=== PATIENT | male | born 1995 | race Caucasian/White ===

== ENCOUNTER 2021-03-13 22:49 | Inpatient (IN) | payer BC, MEDICAID, OTHER ==
--- NOTE | 2021-03-13 23:09 | ED ---
Overdose HPI - General Stated Complaint: Overdose Time Seen by Provider: 03/13/21 23:02 Source: patient, EMS Mode of arrival: EMS - History of Present Illness Initial Comments: This patient is 26-year-old man brought by ambulance to be evaluated after he had taken close to 30 prozac tablets. Complaint: intentional overdose Onset/Timin -: minutes(s) Intent: suicide attempt How Overdose Was Discovered: family/friend present at time Context: Intentional Overdose: relationship problems, work problems, legal problems - Related Data Home Medications Medication Instructions Recorded Confirmed FLUoxetine HCL [PROzac] 20 mg PO DAILY 03/14/21 03/14/21 Allergies Allergy/AdvReac Type Severity Reaction Status Date / Time No Known Allergies Allergy Verified 03/14/21 09:47 Review of Systems ROS Statement: Those systems with pertinent positive or pertinent negative responses have been documented in the HPI. ROS Other: All systems not noted in ROS Statement are negative. Constitutional: Denies: fever, chills, weakness Respiratory: Denies: cough, dyspnea Cardiovascular: Denies: chest pain, palpitations, edema Gastrointestinal: Denies: abdominal pain, nausea, vomiting Genitourinary: Denies: dysuria, hematuria Musculoskeletal: Denies: back pain Skin: Denies: rash Neurological: Denies: headache, weakness, numbness Psychiatric: Reports: depression, suicidal thoughts. Denies: homicidal thoughts Past Medical History Additional Past Medical History / Comment(s): heart murmur History of Any Multi-Drug Resistant Organisms: None Reported Past Surgical History: No Surgical Hx Reported Past Psychological History: No Psychological Hx Reported Smoking Status: Current every day smoker Past Alcohol Use History: Daily, Heavy Past Drug Use History: Marijuana General Exam General appearance: alert, in no apparent distress Head exam: Present: atraumatic, normocephalic Eye exam: Present: normal appearance. Absent: scleral icterus, conjunctival injection Respiratory exam: Present: normal lung sounds bilaterally. Absent: respiratory distress, wheezes, rales, rhonchi, stridor Cardiovascular Exam: Present: regular rate, normal rhythm, normal heart sounds. Absent: systolic murmur, diastolic murmur, rubs, gallop GI/Abdominal exam: Present: soft. Absent: distended, tenderness, guarding, rebound, rigid, mass Extremities exam: Present: normal inspection, normal capillary refill. Absent: pedal edema, calf tenderness Back exam: Present: normal inspection. Absent: CVA tenderness (R), CVA tenderness (L) Neurological exam: Present: alert Psychiatric exam: Present: depressed, flat affect, suicidal ideation. Absent: agitated, anxious, manic, homicidal ideation Skin exam: Present: warm, dry, intact, normal color. Absent: rash Course Vital Signs 03/13/21 03/14/21 22:51 07:22 Temperature 98.3 F 98 F Pulse Rate 76 68 Respiratory 18 18 Rate Blood Pressure 119/92 109/75 O2 Sat by Pulse 99 97 Oximetry Medical Decision Making - Lab Data Result diagrams: 03/15/21 06:55 03/15/21 06:55 Lab Results 03/13/21 03/13/21 03/13/21 Range/Units 23:47 23:47 23:47 WBC 7.0 (3.8-10.6) k/uL RBC 4.79 (4.30-5.90) m/uL Hgb 16.0 (13.0-17.5) gm/dL Hct 45.8 (39.0-53.0) % MCV 95.6 (80.0-100.0) fL MCH 33.4 (25.0-35.0) pg MCHC 34.9 (31.0-37.0) g/dL RDW 12.5 (11.5-15.5) % Plt Count 316 (150-450) k/uL MPV 6.2 Neutrophils % 59 % Lymphocytes % 29 % Monocytes % 7 % Eosinophils % 3 % Basophils % 0 % Neutrophils # 4.1 (1.3-7.7) k/uL Lymphocytes # 2.0 (1.0-4.8) k/uL Monocytes # 0.5 (0-1.0) k/uL Eosinophils # 0.2 (0-0.7) k/uL Basophils # 0.0 (0-0.2) k/uL Sodium 145 (137-145) mmol/L Potassium 3.9 (3.5-5.1) mmol/L Chloride 108 H (98-107) mmol/L Carbon Dioxide 25 (22-30) mmol/L Anion Gap 12 mmol/L BUN 5 L (9-20) mg/dL Creatinine 0.80 (0.66-1.25) mg/dL Est GFR (CKD-EPI)AfAm >90 (>60 ml/min/1.73 sqM) Est GFR (CKD-EPI)NonAf >90 (>60 ml/min/1.73 sqM) Glucose 107 H (74-99) mg/dL Calcium 9.9 (8.4-10.2) mg/dL Magnesium 2.0 (1.6-2.3) mg/dL Total Bilirubin 0.5 (0.2-1.3) mg/dL AST 37 (17-59) U/L ALT 21 (4-49) U/L Alkaline Phosphatase 50 (38-126) U/L Total Protein 7.9 (6.3-8.2) g/dL Albumin 4.9 (3.5-5.0) g/dL Urine Color Urine Appearance (Clear) Urine pH (5.0-8.0) Ur Specific [place] (1.001-1.035) Urine Protein (Negative) Urine Glucose (UA) (Negative) Urine Ketones (Negative) Urine Blood (Negative) Urine Nitrite (Negative) Urine Bilirubin (Negative) Urine Urobilinogen (<2.0) mg/dL Ur Leukocyte Esterase (Negative) Salicylates <1.0 mg/dL Urine Opiates Screen Not Detected (NotDetected) Ur Oxycodone Screen Not Detected (NotDetected) Urine Methadone Screen Not Detected (NotDetected) Ur Propoxyphene Screen Not Detected (NotDetected) Acetaminophen <10.0 ug/mL Ur Barbiturates Screen Not Detected (NotDetected) U Tricyclic Antidepress Not Detected (NotDetected) Ur Phencyclidine Scrn Not Detected (NotDetected) Ur Amphetamines Screen Not Detected (NotDetected) U Methamphetamines Scrn Not Detected (NotDetected) U Benzodiazepines Scrn Not Detected (NotDetected) Urine Cocaine Screen Not Detected (NotDetected) U Marijuana (THC) Screen Detected H (NotDetected) Serum Alcohol 189 mg/dL Coronavirus (PCR) (Not Detectd) 03/13/21 03/14/21 Range/Units 23:47 07:20 WBC (3.8-10.6) k/uL RBC (4.30-5.90) m/uL Hgb (13.0-17.5) gm/dL Hct (39.0-53.0) % MCV (80.0-100.0) fL MCH (25.0-35.0) pg MCHC (31.0-37.0) g/dL RDW (11.5-15.5) % Plt Count (150-450) k/uL MPV Neutrophils % % Lymphocytes % % Monocytes % % Eosinophils % % Basophils % % Neutrophils # (1.3-7.7) k/uL Lymphocytes # (1.0-4.8) k/uL Monocytes # (0-1.0) k/uL Eosinophils # (0-0.7) k/uL Basophils # (0-0.2) k/uL Sodium (137-145) mmol/L Potassium (3.5-5.1) mmol/L Chloride (98-107) mmol/L Carbon Dioxide (22-30) mmol/L Anion Gap mmol/L BUN (9-20) mg/dL Creatinine (0.66-1.25) mg/dL Est GFR (CKD-EPI)AfAm (>60 ml/min/1.73 sqM) Est GFR (CKD-EPI)NonAf (>60 ml/min/1.73 sqM) Glucose (74-99) mg/dL Calcium (8.4-10.2) mg/dL Magnesium (1.6-2.3) mg/dL Total Bilirubin (0.2-1.3) mg/dL AST (17-59) U/L ALT (4-49) U/L Alkaline Phosphatase (38-126) U/L Total Protein (6.3-8.2) g/dL Albumin (3.5-5.0) g/dL Urine Color Light Yellow Urine Appearance Clear (Clear) Urine pH 7.0 (5.0-8.0) Ur Specific [place] 1.010 (1.001-1.035) Urine Protein Negative (Negative) Urine Glucose (UA) Negative (Negative) Urine Ketones Negative (Negative) Urine Blood Negative (Negative) Urine Nitrite Negative (Negative) Urine Bilirubin Negative (Negative) Urine Urobilinogen <2.0 (<2.0) mg/dL Ur Leukocyte Esterase Negative (Negative) Salicylates mg/dL Urine Opiates Screen (NotDetected) Ur Oxycodone Screen (NotDetected) Urine Methadone Screen (NotDetected) Ur Propoxyphene Screen (NotDetected) Acetaminophen ug/mL Ur Barbiturates Screen (NotDetected) U Tricyclic Antidepress (NotDetected) Ur Phencyclidine Scrn (NotDetected) Ur Amphetamines Screen (NotDetected) U Methamphetamines Scrn (NotDetected) U Benzodiazepines Scrn (NotDetected) Urine Cocaine Screen (NotDetected) U Marijuana (THC) Screen (NotDetected) Serum Alcohol mg/dL Coronavirus (PCR) Not Detected (Not Detectd) - EKG Data -: EKG Interpreted by Me EKG shows normal: sinus rhythm (With sinus arrhythmia), axis (Right axis), intervals (IN interval 150 ms, QRS duration 110 ms, QTC 4:15 milliseconds, all normal), QRS complexes (Normal), ST-T waves (Normal) Rate: normal (Rate 69 bpm) Interpretation: LVH (Voltage criteria) Disposition Clinical Impression: Overdose, Suicide Disposition: ADMITTED IP TO THIS [facility] Condition: Fair
[2021-03-13] MEDS ORDERED: NICOTINE 21MG/24HR PATCH TRANSDERM STA (23:11)
[2021-03-13] MEDS ORDERED: SODIUM CHLORIDE 0.9% 1,000 ML IV STA (23:38)
[2021-03-13] MEDS ORDERED: ONDANSETRON 4 MG/2 ML VIAL IVP STA (23:44)
[2021-03-14 00:02] LABS: Basophils % (A) 0 %; Eosinophils # (A) 0.2 k/uL (0-0.7); Eosinophils % (A) 3 %; HCT 45.8 % (39.0-53.0); Lymphocytes % (A) 29 %; MCH 33.4 pg (25.0-35.0); MCHC 34.9 g/dL (31.0-37.0); MCV 95.6 fL (80.0-100.0); Mean Platelet Volume 6.2; Monocytes # (A) 0.5 k/uL (0-1.0); Monocytes % (A) 7 %; Neutrophils # (A) 4.1 k/uL (1.3-7.7); Neutrophils % (A) 59 %; Platelet Count 316 k/uL (150-450); RBC 4.79 m/uL (4.30-5.90); RDW 12.5 % (11.5-15.5)
[2021-03-14 00:14] LABS: Amphetamine Screen,Urine Not Detected (NotDetected); Barbiturate Screen,Urine Not Detected (NotDetected); Benzodiazepines Screen,Urine Not Detected (NotDetected); Cocaine Screen,Urine Not Detected (NotDetected); Methadone Screen, Urine Not Detected (NotDetected); Opiate Screen,Urine Not Detected (NotDetected); Oxycodone Screen, Urine Not Detected (NotDetected); Phencyclidine Screen,Urine Not Detected (NotDetected); Tricyclic Antidepressant,Urine Not Detected (NotDetected); Urn Cannabinoid Scrn Detected (NotDetected)
[2021-03-14 00:37] LABS: ALT 21 U/L (4-49); AST 37 U/L (17-59); Acetaminophen <10.0 ug/mL; African American GFR (CKD) >90 (>60 ml/min/1.73 sqM); Albumin 4.9 g/dL (3.5-5.0); Alkaline Phosphatase 50 U/L (38-126); Anion Gap 12 mmol/L; Blood Urea Nitrogen 5 mg/dL (9-20); Calcium 9.9 mg/dL (8.4-10.2); Carbon Dioxide 25 mmol/L (22-30); Chloride 108 mmol/L (98-107); Glucose 107 mg/dL (74-99); Non-African American GFR(CKD) >90 (>60 ml/min/1.73 sqM); Potassium 3.9 mmol/L (3.5-5.1); Salicylate <1.0 mg/dL; Sodium 145 mmol/L (137-145); Total Bilirubin 0.5 mg/dL (0.2-1.3); Total Protein 7.9 g/dL (6.3-8.2)
[2021-03-14 00:40] LABS: Alcohol 189 mg/dL
[2021-03-14] MEDS ORDERED: LORazepam 1 MG TAB PO PRN (07:25)
[2021-03-14] MEDS ORDERED: MAGNESIUM HYDROXIDE 2,400 MG/10 ML CUP PO PRN (07:25)
[2021-03-14] MEDS ORDERED: MAG HYDROX/AL HYDROX/SIMETH 30 ML CUP PO PRN (07:25)
[2021-03-14] MEDS ORDERED: ACETAMINOPHEN TAB 325 MG TAB PO PRN (07:25)
[2021-03-14] MEDS ORDERED: LORazepam 2 MG/ML INJ IM PRN (07:28)
[2021-03-14] MEDS ORDERED: HALOPERIDOL LACTATE 5 MG/ML 1 ML VIAL IM PRN (07:30)
[2021-03-14 08:08] LABS: Appearance,Urine Clear (Clear); Bilirubin,Urine Negative (Negative); Blood,Urine Negative (Negative); Color,Urine Light Yellow; Glucose,Urine (UA) Negative (Negative); Ketones,Urine Negative (Negative); Leukocyte Esterase,Urine Negative (Negative); Nitrite,Urine Negative (Negative); Protein,Urine Negative (Negative); Urobilinogen,Urine <2.0 mg/dL (<2.0)
[2021-03-14] MEDS ORDERED: haloperidoL 5 MG TAB PO SCH (09:00)
[2021-03-14] MEDS ORDERED: haloperidoL 5 MG TAB PO PRN (09:27)
[2021-03-14] MEDS: busPIRone HCl 10 MG TAB PO SCH ×2 (12:12→21:29)
[2021-03-14] MEDS: ESCITALOPRAM 5 MG TAB PO SCH (12:12)
--- NOTE | 2021-03-14 12:13 | P.HP ---
Psychiatric H&P - . H&P Date: 03/14/21 History & Physical: Allergies Allergy/AdvReac Type Severity Reaction Status Date / Time No Known Allergies Allergy Verified 03/14/21 09:47 Vital Signs Temp 98.5 F 03/14/21 09:34 Pulse 66 03/14/21 09:34 Resp 16 03/14/21 09:34 BP 129/83 03/14/21 09:34 Pulse Ox 97 03/14/21 07:22 Intake & Output 03/13/21 03/14/21 03/14/21 18:59 06:59 18:59 Weight 81.647 kg 70.9 kg Laboratory Last Values WBC 7.0 k/uL (3.8-10.6) 03/13/21 23:47 RBC 4.79 m/uL (4.30-5.90) 03/13/21 23:47 Hgb 16.0 gm/dL (13.0-17.5) 03/13/21 23:47 Hct 45.8 % (39.0-53.0) 03/13/21 23:47 MCV 95.6 fL (80.0-100.0) 03/13/21 23:47 MCH 33.4 pg (25.0-35.0) 03/13/21 23:47 MCHC 34.9 g/dL (31.0-37.0) 03/13/21 23:47 RDW 12.5 % (11.5-15.5) 03/13/21 23:47 Plt Count 316 k/uL (150-450) 03/13/21 23:47 MPV 6.2 03/13/21 23:47 Neutrophils % 59 % 03/13/21 23:47 Lymphocytes % 29 % 03/13/21 23:47 Monocytes % 7 % 03/13/21 23:47 Eosinophils % 3 % 03/13/21 23:47 Basophils % 0 % 03/13/21 23:47 Neutrophils # 4.1 k/uL (1.3-7.7) 03/13/21 23:47 Lymphocytes # 2.0 k/uL (1.0-4.8) 03/13/21 23:47 Monocytes # 0.5 k/uL (0-1.0) 03/13/21 23:47 Eosinophils # 0.2 k/uL (0-0.7) 03/13/21 23:47 Basophils # 0.0 k/uL (0-0.2) 03/13/21 23:47 Sodium 145 mmol/L (137-145) 03/13/21 23:47 Potassium 3.9 mmol/L (3.5-5.1) 03/13/21 23:47 Chloride 108 mmol/L (98-107) H 03/13/21 23:47 Carbon Dioxide 25 mmol/L (22-30) 03/13/21 23:47 Anion Gap 12 mmol/L 03/13/21 23:47 BUN 5 mg/dL (9-20) L 03/13/21 23:47 Creatinine 0.80 mg/dL (0.66-1.25) 03/13/21 23:47 Est GFR (CKD-EPI)AfAm >90 (>60 ml/min/1.73 sqM) 03/13/21 23:47 Est GFR (CKD-EPI)NonAf >90 (>60 ml/min/1.73 sqM) 03/13/21 23:47 Glucose 107 mg/dL (74-99) H 03/13/21 23:47 Calcium 9.9 mg/dL (8.4-10.2) 03/13/21 23:47 Magnesium 2.0 mg/dL (1.6-2.3) 03/13/21 23:47 Total Bilirubin 0.5 mg/dL (0.2-1.3) 03/13/21 23:47 AST 37 U/L (17-59) 03/13/21 23:47 ALT 21 U/L (4-49) 03/13/21 23:47 Alkaline Phosphatase 50 U/L (38-126) 03/13/21 23:47 Total Protein 7.9 g/dL (6.3-8.2) 03/13/21 23:47 Albumin 4.9 g/dL (3.5-5.0) 03/13/21 23:47 Urine Color Light Yellow 03/13/21 23:47 Urine Appearance Clear (Clear) 03/13/21 23:47 Urine pH 7.0 (5.0-8.0) 03/13/21 23:47 Ur Specific [place] 1.010 (1.001-1.035) 03/13/21 23:47 Urine Protein Negative (Negative) 03/13/21 23:47 Urine Glucose (UA) Negative (Negative) 03/13/21 23:47 Urine Ketones Negative (Negative) 03/13/21 23:47 Urine Blood Negative (Negative) 03/13/21 23:47 Urine Nitrite Negative (Negative) 03/13/21 23:47 Urine Bilirubin Negative (Negative) 03/13/21 23:47 Urine Urobilinogen <2.0 mg/dL (<2.0) 03/13/21 23:47 Ur Leukocyte Esterase Negative (Negative) 03/13/21 23:47 Salicylates <1.0 mg/dL 03/13/21 23:47 Urine Opiates Screen Not Detected (NotDetected) 03/13/21 23:47 Ur Oxycodone Screen Not Detected (NotDetected) 03/13/21 23:47 Urine Methadone Screen Not Detected (NotDetected) 03/13/21 23:47 Ur Propoxyphene Screen Not Detected (NotDetected) 03/13/21 23:47 Acetaminophen <10.0 ug/mL 03/13/21 23:47 Ur Barbiturates Screen Not Detected (NotDetected) 03/13/21 23:47 U Tricyclic Antidepress Not Detected (NotDetected) 03/13/21 23:47 Ur Phencyclidine Scrn Not Detected (NotDetected) 03/13/21 23:47 Ur Amphetamines Screen Not Detected (NotDetected) 03/13/21 23:47 U Methamphetamines Scrn Not Detected (NotDetected) 03/13/21 23:47 U Benzodiazepines Scrn Not Detected (NotDetected) 03/13/21 23:47 Urine Cocaine Screen Not Detected (NotDetected) 03/13/21 23:47 U Marijuana (THC) Screen Detected (NotDetected) H 03/13/21 23:47 Serum Alcohol 189 mg/dL 03/13/21 23:47 Coronavirus (PCR) Not Detected (Not Detectd) 03/14/21 07:20 03/14/21 11:20 IDENTIFYING DATA: Patient is a 26-year-old male who currently lives with his friend and has 1 to single and currently he works making [employer] . HPI: Patient presented to the hospital yesterday brought in by EMS after a overdose at his home. Apparently patient had taken 30 tablets of Prozac according to ER report. Family and friends were present. Patient's UDS was positive for marijuana. Patient was admitted to the unit for further evaluation and treatment. Patient was seen today and agreeable to seek a sheet writer. He had poor hygiene and grooming. He was tearful at times during the interview. He states that he tried to kill himself after an overdose and states that he started drinking heavily afterwards. He states that he's been drinking heavily for approximately 5-6 years now. He denies any history of delirium tremens however states that he does have mild tremors at this time and cravings. He states that he was drinking approximately one to two fifths of [place] per day. He states that he relapsed also "back on pills" however was vague about what this meant. He states that he is feeling depressed and anxious. He states that recent triggers include him starting a new job and also his mother of the child won't let him talk to his daughter any longer "because she has a new boyfriend". He states that he also is 26 years old" still can't drive". He claims that after the overdose he passed out and his friend called EMS to bring him in the hospital. He states that his sleep is okay and appetite is fair. Patient denies any suicidal or homicidal ideations intent or plan. At this time patient denies any auditory or visual hallucinations. Patient denies any flight of ideas racing thoughts and increased in goal directed behavior. Patient admits to using cigarettes daily, marijuana daily, alcohol as described above. PAST PSYCHIATRIC HISTORY: Patient states that he has a history of polysubstance abuse and depression and anxiety. Patient denies being on any psychiatric medications. Patient denies any previous psychiatric hospitalizations. He claims that he is recently established that [facility] however has not seen a psychiatrist yet. He claims that he was hospitalized once in [place] when he was 16 years old. He claims that he did have 2 other overdose suicide attempts in the past. PMH: Heart murmur ALLERGIES: as per EMR CHEMICAL DEPENDENCY HISTORY: as per HPI FAMILY PSYCHIATRIC/SUBSTANCE USE HISTORY: Mother has bipolar disorder SOCIAL HISTORY: Patient was born and raised in [facility]. He states that he completed high school. He states that he's been to shelter approximately 26 times in the past for various charges. He states that he currently lives with a friend and has 1 to single and is currently employed making [employer]. MENTAL STATUS EXAM: General Appearance: Patient appears to be older than stated age, several tattoos, is alert, tearful at times, directable. Patient appears to have poor hygiene and grooming. Behavior: Patient is seated without any agitated behavior. Tearful Speech: Patient's speech is fluent and nonpressured. Mood/Affect: Patient reports their mood is depressed, affect is congruent and constricted. Suicidality/Homicidality: Patient denies having any homicidal ideation intent or plan. Denies any suicidal ideations intent or plan Perceptions: Patient denies any visual hallucinations and denies any auditory hallucinations Though content/process: Focused on his stressors, logical and goal oriented. Memory and concentration: AOX3, grossly intact for the purposes of this session. Can spell "WORLD" backwards Judgment and insight: poor STRENGTHS/WEAKNESSES: strength is that patient is resilient. Weakness is that patient has poor judgment and is impulsive INTELLECT: average IMPRESSIONS: Major depressive disorder, recurrent, severe without psychotic features Cannabis abuse Alcohol use disorder, currently in withdrawal Nicotine dependence PLAN: -Patient is admitted under voluntary status to MHU for stabilization of psychiatric symptoms and safety. Patient has signed adult voluntary form and medication consent and is placed in patient's chart. -Medications : Will start patient on Lexapro 5 mg daily for mood/anxiety, BuSpar 10 mg twice a day for anxiety. Naltrexone 50 mg daily for alcohol cravings. -Ativan and Haldol PRN for agitation/aggression -Started thiamine, MVM for etoh use -[facility] protocol with Ativan PRN for ETOH withdrawal -Patient was counselled on substance abuse however patient minimized his alcohol use -Patient was informed of the risks, benefits and side effects of the medication and patient verbally consented to taking the medications. Patient signed med consent form and was placed in chart. -Internal Medicine consult to perform medical evaluation and physical. -NRT - nicotine patch -SW on board for discharge planning. Encourage patient to participate in groups to work on coping skills. Patient claims that he does not want to go to rehab and can't "quit on my own". 03/14/21 12:06 03/14/21 12:13
--- NOTE | 2021-03-14 14:08 | P.CONS ---
History of Present Illness - Reason for Consult Consult date: 03/14/21 Medical management - Chief Complaint Depression - History of Present Illness This is a 26-year-old male with past medical history noted below who presented to the emergency room with a suicidal attempt after taking numerous pills of his Prozac medicine. Patient was evaluated in the ER and currently admitted to the psych unit for further management. I was asked to see him for medical managemen t. Patient does not have any specific concerns or complaints at this time. He denies any suicidal thoughts right now. He reported that he smokes 2 packs of cigarettes per day. He denies illicit drug use. Review of Systems Review of system: 14 points review of systems were obtained and were negative except to what were mentioned in the HPI. Past Medical History Additional Past Medical History / Comment(s): heart murmur History of Any Multi-Drug Resistant Organisms: None Reported Past Surgical History: No Surgical Hx Reported Past Psychological History: No Psychological Hx Reported Smoking Status: Current every day smoker Past Alcohol Use History: Daily, Heavy Additional Past Alcohol Use History / Comment(s): 4-5 alcohol drinks daily Past Drug Use History: Marijuana Medications and Allergies Home Medications Medication Instructions Recorded Confirmed Type FLUoxetine HCL [PROzac] 20 mg PO DAILY 03/14/21 03/14/21 History Allergies Allergy/AdvReac Type Severity Reaction Status Date / Time No Known Allergies Allergy Verified 03/14/21 09:47 Physical Exam Vitals: Vital Signs Temp Pulse Pulse Resp BP BP Pulse Ox 03/14/21 09:34 98.5 F 66 16 129/83 03/14/21 09:05 98.5 F 66 16 129/83 03/14/21 07:22 98 F 68 18 109/75 97 03/13/21 22:51 98.3 F 76 18 119/92 99 Intake and Output 03/13/21 03/14/21 03/14/21 22:59 06:59 14:59 Other: Weight 81.647 kg 70.9 kg General: The patient is awake and alert, in no distress Eye: there is normal conjunctiva bilaterally. Neck: The neck is supple, there is no JVD. Cardiovascular: Normal S1-S2, no S3-S4, no murmurs. Respiratory: Lungs clear to auscultation bilaterally Gastrointestinal: Abdomen is soft, nontender Musculoskeletal: There is no pedal edema. Neurological:. Speech is normal. Skin: Skin is warm and dry Results CBC & Chem 7: 03/13/21 23:47 03/13/21 23:47 Labs: Abnormal Lab Results - Last 24 Hours (Table) 03/13/21 03/13/21 Range/Units 23:47 23:47 Chloride 108 H (98-107) mmol/L BUN 5 L (9-20) mg/dL Glucose 107 H (74-99) mg/dL U Marijuana (THC) Screen Detected H (NotDetected) Assessment and Plan Assessment: 1. Suicide attempt with drug overdose 2. Depression 3. Tobacco abuse: Counseled extensively to quit. Nicotine patch ordered Today, I reviewed his medication list and lab work results. Management per psych team. Thank you very much for the consultation.
[2021-03-15] MEDS: NICOTINE 21MG/24HR PATCH TRANSDERM SCH ×2 (00:12→19:41)
[2021-03-15 07:37] LABS: Basophils % (A) 0 %; Eosinophils # (A) 0.2 k/uL (0-0.7); Eosinophils % (A) 3 %; HCT 45.6 % (39.0-53.0); HGB 15.6 gm/dL (13.0-17.5); Lymphocytes # (A) 1.6 k/uL (1.0-4.8); Lymphocytes % (A) 24 %; MCH 33.4 pg (25.0-35.0); MCHC 34.3 g/dL (31.0-37.0); MCV 97.4 fL (80.0-100.0); Mean Platelet Volume 6.4; Monocytes # (A) 0.6 k/uL (0-1.0); Monocytes % (A) 8 %; Neutrophils # (A) 4.2 k/uL (1.3-7.7); Neutrophils % (A) 63 %; Platelet Count 289 k/uL (150-450); RBC 4.68 m/uL (4.30-5.90); RDW 12.4 % (11.5-15.5); WBC 6.7 k/uL (3.8-10.6)
[2021-03-15 07:53] LABS: ALT 21 U/L (4-49); AST 35 U/L (17-59); African American GFR (CKD) >90 (>60 ml/min/1.73 sqM); Albumin 4.6 g/dL (3.5-5.0); Alkaline Phosphatase 47 U/L (38-126); Anion Gap 8 mmol/L; Blood Urea Nitrogen 9 mg/dL (9-20); Calcium 10.2 mg/dL (8.4-10.2); Carbon Dioxide 30 mmol/L (22-30); Chloride 103 mmol/L (98-107); Cholesterol 177 mg/dL (<200); Glucose 111 mg/dL (74-99); HDL Cholesterol 42 mg/dL (40-60); LDL Cholesterol,Calculated 95 mg/dL (0-99); Non-African American GFR(CKD) >90 (>60 ml/min/1.73 sqM); Sodium 141 mmol/L (137-145); Total Bilirubin 0.9 mg/dL (0.2-1.3); Total Protein 7.5 g/dL (6.3-8.2); Triglycerides 202 mg/dL (<150)
[2021-03-15] MEDS: THIAMINE 100 MG TAB PO SCH (08:49)
[2021-03-15] MEDS: FOLIC ACID 1 MG TAB PO SCH (08:49)
[2021-03-15] MEDS: NALTREXONE HCL 50 MG TAB PO SCH (08:49)
[2021-03-15] MEDS: ESCITALOPRAM 5 MG TAB PO SCH (08:49)
[2021-03-15] MEDS: busPIRone HCl 10 MG TAB PO SCH ×2 (08:49→21:06)
[2021-03-15] MEDS: MULTIVITAMINS, THERA 1 EACH TAB PO SCH (08:49)
--- NOTE | 2021-03-15 10:25 | P.PN ---
Progress Note - Text Progress Note Date: 03/15/21 Interval History: Patient was seen sitting in on group this morning and was directable and agree able to speak with insurance underwriter sales in the office. Patient claims that he feels improvement overall in his condition. He continues to minimize his drinking and claims that he does not want to go to rehab. He states that he would rather do AA meetings. He states that he was able to sleep fairly last night approximately 7 hours. He states that he has been trying to go to groups and work on his coping skills. He states that his roommate who he talks to will not allow him back in the house if he continues to drink. 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 Patient claims that his mood has been gradually improving and states that his anxiety is improving as well. He states that he continues to have minor withdrawal symptoms including minor tremor. At this time patient denies any suicidal or homical ideations, intent or plan. Patient denies any auditory, visual hallucinations and denies any paranoia or delusions. Patient denies any side effects from the medications and has been compliant with meds. Patient was fairly preoccupied with discharge today. Mental Status Exam: General Appearance: Patient appears to be older than stated age, several tattoos, is alert, not tearful today, directable. Patient appears to have mildly improving hygiene and grooming. Behavior: Patient is seated without any agitated behavior. Speech: Patient's speech is fluent and nonpressured. Mood/Affect: Patient reports their mood is improving mildly, affect is congruent and constricted. Suicidality/Homicidality: Patient denies having any homicidal ideation intent or plan. Denies any suicidal ideations intent or plan Perceptions: Patient denies any visual hallucinations and denies any auditory hallucinations Though content/process: Focused on his stressors, logical and goal oriented. Minimizing his alcohol use. Memory and concentration: AOX3, grossly intact for the purposes of this session Judgment and insight: poor, improving mildly Assessment Major depressive disorder, recurrent, severe without psychotic features Cannabis abuse Alcohol use disorder, currently in withdrawal Nicotine dependence Plan: -Patient continues to meet criteria for inpatient psychiatric admission for symptom stabilization and safety. Patient has signed adult voluntary form and medication consent and was placed in patient's chart. -Medications: Increase Lexapro to 10 mg daily for mood/anxiety, BuSpar 10 mg twice a day for anxiety, naltrexone 50 mg daily for alcohol cravings. -thiamine, MVM for etoh use -[facility] protocol with Ativan PRN for ETOH withdrawal -When necessary Ativan and Haldol for agitation/aggression. -NRT - nicotine patch -SW on board for discharge planning. Encouraged the patient to participate in milieu. Patient is continuing to refuse rehab and wants to do AA meetings instead. Likely discharge tomorrow if patient is well overnight.
[2021-03-15 12:57] LABS: Hemoglobin A1C 5.3 % (4.0-6.0)
[2021-03-16 07:10] VITALS: BP 124/86; PULSE 92; RESP 16; TEMP 98.6
[2021-03-16] MEDS: NALTREXONE HCL 50 MG TAB PO SCH (08:24)
[2021-03-16] MEDS: MULTIVITAMINS, THERA 1 EACH TAB PO SCH (08:24)
[2021-03-16] MEDS: FOLIC ACID 1 MG TAB PO SCH (08:24)
[2021-03-16] MEDS: busPIRone HCl 10 MG TAB PO SCH (08:24)
[2021-03-16] MEDS: THIAMINE 100 MG TAB PO SCH (08:24)
[2021-03-16] MEDS ORDERED: ESCITALOPRAM 10 MG TAB PO SCH (09:00)
--- NOTE | 2021-03-16 09:37 | P.DS ---
Providers Date of admission: 03/14/21 07:22 Expected date of discharge: 03/16/21 Attending physician: Curly Martinez MD Consults: 03/14/21 07:25 Consult Physician Routine Consulting Provider: [facility] Consult Reason/Comments: h and p Do you want consulting provider notified?: Yes, Notify in am Primary care physician: Stated None - Discharge Diagnosis(es) (1) Major depressive disorder without psychotic features Current Visit: Yes Status: Acute Priority: High (2) Cannabis abuse Current Visit: Yes Status: Acute Priority: Medium (3) Alcohol use disorder Current Visit: Yes Status: Acute Priority: High (4) Nicotine dependence Current Visit: Yes Status: Acute Priority: Low Hospital Course: Admission HPI: Admission note was completed by machine sign writer "Patient is a 26-year-old male who currently lives with his friend and has 1 to single and currently he works making [employer]. Patient presented to the hospital yesterday brought in by EMS after a overdose at his home. Apparently patient had taken 30 tablets of Prozac according to ER report. Family and friends were present. Patient's UDS was positive for marijuana. Patient was admitted to the unit for further evaluation and treatment. Patient was seen today and agreeable to seek a machine sign writer. He had poor hygiene and grooming. He was tearful at times during the interview. He states that he tried to kill himself after an overdose and states that he started drinking heavily afterwards. He states that he's been drinking heavily for approximately 5-6 years now. He denies any history of delirium tremens however states that he does have mild tremors at this time and cravings. He states that he was drinking approximately one to two fifths of [place] per day. He states that he relapsed also "back on pills" however was vague about what this meant. He states that he is feeling depressed and anxious. He states that recent triggers include him starting a new job and also his mother of the child won't let him talk to his daughter any longer "because she has a new boyfriend". He states that he also is 26 years old" still can't drive". He claims that after the overdose he passed out and his friend called EMS to bring him in the hospital. He states that his sleep is okay and appetite is fair. Patient denies any suicidal or homicidal ideations intent or plan. At this time patient denies any auditory or visual hallucinations. Patient denies any flight of ideas racing thoughts and increased in goal directed behavior. Patient admits to using cigarettes daily, marijuana daily, alcohol as described above." Hospital course: Upon admission to the unit patient was initially depressed and tearful. Patient was however directable and agreeable to commence treatment and signed adult voluntary form. Patient got along well with other patients on the unit and followed unit protocol. Patient was compliant with the medications and denied any side effects throughout hospital course. Patient was started on Lexapro and titrated up to dose of 10 mg daily for mood/anxiety, BuSpar 10 mg twice a day for anxiety, naltrexone 50 mg daily for alcohol cravings. Due to patient's heavy alcohol use, patient was placed on thiamine and multivitamin along with folic acid and also placed on CIWA protocol and given Ativan when necessary for withdrawal. Patient spoke of his stressors and engaged in therapy both group and individual. Patient was also seen by medical team for history and physical exam. Throughout the course of the hospitalization patient gradually improved with regards to mood, anxiety, sleep and became more future oriented with improved insight and judgment. On the day of discharge patient denied any suicidal or homicidal ideations intent or plan denied any auditory or visual hallucinations. Patient endorsed wanting to live for his health and daughter. The patient denied any access to guns or weapons. Patient denied any paranoia and did not endorse any delusions. Patient does have a significant history of substance abuse however was counseled on abstaining from all substances including alcohol and marijuana. Patient was offered however declined inpatient substance-abuse rehab. Patient elected to do outpatient substance use treatment program through [facility] and also elected to do AA meetings in the community. Patient was also counseled on the medications and need for regular compliance and was encouraged to follow-up with their outpatient appointment for mental health and also for primary care. Prior to discharge a family meeting will be arranged by social media content specialist to answer any questions and ensure safety upon discharge. Mental status exam: General Appearance: Patient appears to be stated age is alert, pleasant, and cooperative. Patient is in no acute distress and has improved hygiene and grooming Behavior: Patient is calmly seated without any agitated behavior. Speech: Patient's speech is fluent and nonpressured. Mood/Affect: Patient reports their mood is "good", affect is congruent and euthymic. Suicidality/Homicidality: Patient denies having any suicidal or homicidal ideation intent or plan. Perceptions: Patient denies any auditory or visual hallucinations. Though content/process: There is no evidence of any delusional thought content and thought process is linear and goal-directed. more future oriented Memory and concentration: AOX3, grossly intact for the purposes of this session. Can spell "WORLD" backwards correctly. Judgment and insight: chronically impulsive, however has improved with guarded prognosis Impression: Major depressive disorder, recurrent, severe without psychotic features Cannabis abuse Alcohol use disorder Nicotine dependence Plan: -Continue with discharge today as patient has improved and stabilized psychiatrically and is not currently an imminent threat to himself and/or others. Patient will remain at chronically elevated risk for harm to self and/or others due to his impulsivity and polysubstance abuse. -Continue medications: Lexapro 10 mg daily for mood/anxiety, BuSpar 10 mg twice a day for anxiety, naltrexone 50 mg daily for alcohol cravings. -Patient was counseled on the need for medication compliance and appropriate follow-up at mental health and also primary care for medical issues. Patient verbalized understanding and agreed. -Social work to arrange for and conduct family meeting to ensure safety upon discharge and answer any questions/concerns. Social work also to arrange for patients follow up appointments with [facility] for psychiatric care along with follow up with primary care provider. -Patient counseled on abstaining from recreational drugs and marijuana and alcohol. Was informed/educated on the adverse effects on their physical and mental health. Patient verbally agreed and understood. Patient will be on naltrexone for alcohol cravings and also elected to do outpatient treatment with [facility] and also AA meetings in the community. -Patient was instructed to return to the hospital or seek immediate medical care if their psychiatric or medical symptoms do worsen or reoccur. Allergies Allergy/AdvReac Type Severity Reaction Status Date / Time No Known Allergies Allergy Verified 03/14/21 09:47 Laboratory Results WBC 6.7 k/uL (3.8-10.6) 03/15/21 06:55 RBC 4.68 m/uL (4.30-5.90) 03/15/21 06:55 Hgb 15.6 gm/dL (13.0-17.5) 03/15/21 06:55 Hct 45.6 % (39.0-53.0) 03/15/21 06:55 MCV 97.4 fL (80.0-100.0) 03/15/21 06:55 MCH 33.4 pg (25.0-35.0) 03/15/21 06:55 MCHC 34.3 g/dL (31.0-37.0) 03/15/21 06:55 RDW 12.4 % (11.5-15.5) 03/15/21 06:55 Plt Count 289 k/uL (150-450) 03/15/21 06:55 MPV 6.4 03/15/21 06:55 Neutrophils % 63 % 03/15/21 06:55 Lymphocytes % 24 % 03/15/21 06:55 Monocytes % 8 % 03/15/21 06:55 Eosinophils % 3 % 03/15/21 06:55 Basophils % 0 % 03/15/21 06:55 Neutrophils # 4.2 k/uL (1.3-7.7) 03/15/21 06:55 Lymphocytes # 1.6 k/uL (1.0-4.8) 03/15/21 06:55 Monocytes # 0.6 k/uL (0-1.0) 03/15/21 06:55 Eosinophils # 0.2 k/uL (0-0.7) 03/15/21 06:55 Basophils # 0.0 k/uL (0-0.2) 03/15/21 06:55 Sodium 141 mmol/L (137-145) 03/15/21 06:55 Potassium 4.0 mmol/L (3.5-5.1) 03/15/21 06:55 Chloride 103 mmol/L (98-107) 03/15/21 06:55 Carbon Dioxide 30 mmol/L (22-30) 03/15/21 06:55 Anion Gap 8 mmol/L 03/15/21 06:55 BUN 9 mg/dL (9-20) 03/15/21 06:55 Creatinine 1.01 mg/dL (0.66-1.25) 03/15/21 06:55 Est GFR (CKD-EPI)AfAm >90 (>60 ml/min/1.73 sqM) 03/15/21 06:55 Est GFR (CKD-EPI)NonAf >90 (>60 ml/min/1.73 sqM) 03/15/21 06:55 Glucose 111 mg/dL (74-99) H 03/15/21 06:[address] Glu mg/dL 105 03/15/21 06:55 Hemoglobin A1c 5.3 % (4.0-6.0) 03/15/21 06:55 Calcium 10.2 mg/dL (8.4-10.2) 03/15/21 06:55 Magnesium 2.0 mg/dL (1.6-2.3) 03/13/21 23:47 Total Bilirubin 0.9 mg/dL (0.2-1.3) 03/15/21 06:55 AST 35 U/L (17-59) 03/15/21 06:55 ALT 21 U/L (4-49) 03/15/21 06:55 Alkaline Phosphatase 47 U/L (38-126) 03/15/21 06:55 Total Protein 7.5 g/dL (6.3-8.2) 03/15/21 06:55 Albumin 4.6 g/dL (3.5-5.0) 03/15/21 06:55 Triglycerides 202 mg/dL (<150) H 03/15/21 06:55 Cholesterol 177 mg/dL (<200) 03/15/21 06:55 LDL Cholesterol, Calc 95 mg/dL (0-99) 03/15/21 06:55 HDL Cholesterol 42 mg/dL (40-60) 03/15/21 06:55 TSH 3.730 mIU/L (0.465-4.680) 03/15/21 06:55 Urine Color Light Yellow 03/13/21 23:47 Urine Appearance Clear (Clear) 03/13/21 23:47 Urine pH 7.0 (5.0-8.0) 03/13/21 23:47 Ur Specific [place] 1.010 (1.001-1.035) 03/13/21 23:47 Urine Protein Negative (Negative) 03/13/21 23:47 Urine Glucose (UA) Negative (Negative) 03/13/21 23:47 Urine Ketones Negative (Negative) 03/13/21 23:47 Urine Blood Negative (Negative) 03/13/21 23:47 Urine Nitrite Negative (Negative) 03/13/21 23:47 Urine Bilirubin Negative (Negative) 03/13/21 23:47 Urine Urobilinogen <2.0 mg/dL (<2.0) 03/13/21 23:47 Ur Leukocyte Esterase Negative (Negative) 03/13/21 23:47 Salicylates <1.0 mg/dL 03/13/21 23:47 Urine Opiates Screen Not Detected (NotDetected) 03/13/21 23:47 Ur Oxycodone Screen Not Detected (NotDetected) 03/13/21 23:47 Urine Methadone Screen Not Detected (NotDetected) 03/13/21 23:47 Ur Propoxyphene Screen Not Detected (NotDetected) 03/13/21 23:47 Acetaminophen <10.0 ug/mL 03/13/21 23:47 Ur Barbiturates Screen Not Detected (NotDetected) 03/13/21 23:47 U Tricyclic Antidepress Not Detected (NotDetected) 03/13/21 23:47 Ur Phencyclidine Scrn Not Detected (NotDetected) 03/13/21 23:47 Ur Amphetamines Screen Not Detected (NotDetected) 03/13/21 23:47 U Methamphetamines Scrn Not Detected (NotDetected) 03/13/21 23:47 U Benzodiazepines Scrn Not Detected (NotDetected) 03/13/21 23:47 Urine Cocaine Screen Not Detected (NotDetected) 03/13/21 23:47 U Marijuana (THC) Screen Detected (NotDetected) H 03/13/21 23:47 Serum Alcohol 189 mg/dL 03/13/21 23:47 Coronavirus (PCR) Not Detected (Not Detectd) 03/14/21 07:20 Vital Signs Temp 98.6 F 03/16/21 06:52 Pulse 92 03/16/21 06:52 Resp 16 03/16/21 06:52 BP 124/86 03/16/21 06:52 Pulse Ox 97 03/15/21 09:00 Patient Condition at Discharge: Stable Plan - Discharge Summary Discharge Rx Participant: Yes New Discharge Prescriptions: New busPIRone HCl [Buspar] 10 mg PO BID 14 Days tab Folic Acid 1 mg PO DAILY 14 Days tab Multivitamins, Thera [Multivitamin (formulary)] 1 each PO DAILY 14 Days tab Thiamine [Vitamin B-1] 100 mg PO DAILY 14 Days tab Nicotine 21Mg/24Hr Patch [Habitrol] 1 patch TRANSDERM HS 14 Days patch Escitalopram [Lexapro] 10 mg PO DAILY 14 Days tab Naltrexone HCl [Revia] 50 mg PO DAILY 14 Days tab Discontinued FLUoxetine HCL [PROzac] 20 mg PO DAILY Discharge Medication List Escitalopram [Lexapro] 10 mg PO DAILY 14 Days tab 03/16/21 [Rx] Folic Acid 1 mg PO DAILY 14 Days tab 03/16/21 [Rx] Multivitamins, Thera [Multivitamin (formulary)] 1 each PO DAILY 14 Days tab 03/16/21 [Rx] Naltrexone HCl [Revia] 50 mg PO DAILY 14 Days tab 03/16/21 [Rx] Nicotine 21Mg/24Hr Patch [Habitrol] 1 patch TRANSDERM HS 14 Days patch 03/16/21 [Rx] Thiamine [Vitamin B-1] 100 mg PO DAILY 14 Days tab 03/16/21 [Rx] busPIRone HCl [Buspar] 10 mg PO BID 14 Days tab 03/16/21 [Rx] Follow up Appointment(s)/Referral(s): [facility] [NON-STAFF] - 1 Week Patient Instructions/Handouts: How to Stop Smoking (DC), Depression (DC) Activity/Diet/Wound Care/Special Instructions: Activity and diet as tolerated. Avoid the use of street drugs and alcohol. Take all medications as prescribed. When you are in need of refills on your medications please contact your medical provider and/or outpatient psychiatrist to have this done. Please go to scheduled outpatient appointment for aftercare. If symptoms return or become worse call the crisis line at and/or go to the nearest emergency room for an evaluation. Discharge Disposition: HOME SELF-CARE
== END 2021-03-16 11:36 | disposition home or self-care (01) | DRG 885 ==
LOC: EC 22:49 → 3MHU 03-14 07:22
PROVIDERS: ADMIT Psychiatry & Neurology Psychiatry; ATTEND Psychiatry & Neurology Psychiatry
DX: F33.2 Major depressive disorder, recurrent severe without psychotic features (principal); F10.10 Alcohol abuse, uncomplicated; F12.10 Cannabis abuse, uncomplicated; F17.210 Nicotine dependence, cigarettes, uncomplicated; F41.9 Anxiety disorder, unspecified; T50.902A Poisoning by unspecified drugs, medicaments and biological substances, intentional self-harm, initial encounter; Z65.3 Problems related to other legal circumstances; Z79.899 Other long term (current) drug therapy; Z81.8 Family history of other mental and behavioral disorders
CPT/HCPCS: 36415; 80053; 80061; 80143; 80179; 80306; 80320; 81003; 82075; 83036; 83735; 84443; 85025; 87635; 93005; 96361; 96374; 99285